=== PATIENT | male | born 1950 | race Caucasian/White ===

== ENCOUNTER 2017-09-17 18:18 | Emergency (ER) | payer MEDICARE, BC, SELFPAY ==
[2017-09-17 18:29] VITALS: BP 142/83; PULSE 71; RESP 20; TEMP 36.8; O2SAT 99; BMI 32.2
--- NOTE | 2017-09-17 18:34 | ED_ITS ---
HPI - Back Pain/Injury General Chief Complaint: Back Pain/Injury Stated Complaint: elevated BP, Upper back pain and left arm pain Time Seen by Provider: 09/17/17 18:33 Source: patient Mode of arrival: ambulatory Limitations: no limitations History of Present Illness HPI Narrative: The patient came in due to left scapular area back pain that radiated to his left shoulder and arm. The discomfort started 2 days ago. The pain did come after some exertion at home. He had no associated chest pain or dyspnea. He does have a history of CAD, but has been stable for many years. He has had no recent cardiac evaluation. He has diabetes, hyperlipidemia and hypertension. His blood pressure has been going up recently, he was 180s systolic at home prior to coming in today. He took a nitroglycerin sublingual, this decreased blood pressure and may have helped the back pain. He still has a degree of back pain. Additionally, he vomited today. The vomitus had no obvious blood. He had a single dark tarry bowel movement. There was no bright red blood per rectum. He took ibuprofen 2-3 days ago for the back pain. He has not been taking ibuprofen regularly. He has no history of PUD or GI bleeding. He does have a history of prostate cancer for which she underwent prostatectomy and radiation. A trace amount of PSA showed up and blood testing earlier this year. No source has been identified. He has no recent history of endoscopy or colonoscopy. Related Data Allergies Allergy/AdvReac Type Severity Reaction Status Date / Time INGREDIENT: NO KNOWN - NO Allergy Unknown Uncoded 05/29/17 13:07 KNOWN DRUG ALLERGY Review of Systems Review of Systems All systems reviewed & are unremarkable except as noted in HPI and below Constitutional Denies chills, Denies fever(s), Denies lethargy and Denies weakness Eyes Denies change in vision ENT Ears, Nose, Mouth, and Throat: Denies dysphagia and Denies neck pain Cardiovascular Denies chest pain at rest, Denies diaphoresis, Denies leg edema, Denies palpitations and Denies dyspnea Respiratory Denies cough, Denies hemoptysis and Denies dyspnea Gastrointestinal Gastrointestinal: Reports melena, Denies dysphagia, Denies heartburn, Denies nausea, Reports vomiting and Denies hematemesis Genitourinary Denies hematuria, Denies flank pain, Denies urinary incontinence and Denies urinary urgency Musculoskeletal Reports as per HPI, Denies muscle weakness and Denies neck pain Integumentary/Breasts Denies erythema, Denies rash and Denies wounds Neurologic Denies weakness Endocrine Denies palpitations PFSH Medical History Coronary artery disease (Acute) Diabetes (Acute) Hyperlipidemia (Acute) Hypertension (Acute) Prostate cancer (Acute) Surgical History H/O prostatectomy (Acute) Social History Smoking Status: Never smoker Exam Initial Vital Signs Initial Vital Signs: Vital Signs Temperature 98.2 F 09/17/17 18:29 Pulse Rate 71 09/17/17 18:29 Respiratory Rate 20 09/17/17 18:29 Blood Pressure 142/83 H 09/17/17 18:29 Pulse Oximetry 99 09/17/17 18:29 Const General: cooperative, healthy appearing and well developed Nutritional Appearance: well nourished Orientation: alert, awake and oriented x3 HENMT Head: normocephalic and atraumatic Mouth: oral mucosae normal and moist mucous membranes Eyes Conjunctivae: conjunctivae normal Neck Neck: No lymphadenopathy and No JVD Carotids: normal carotid upstroke Chest Chest: normal inspection of the chest and other (No chest wall tenderness.) Resp Effort & Inspection: normal respiratory effort and able to speak in complete sentences Auscultation: clear to auscultation bilaterally, no rales, no rhonchi and no wheezes Cardio Rate: regular rate Rhythm: regular rhythm Heart Sounds: S1 normal, S2 normal, no click, no gallops, no murmurs and no rubs Pulses: normal peripheral pulses GI Inspection: non-distended Palpation: soft, no hepatosplenomegaly, No guarding, No pulsatile mass and No tender Auscultation: normal bowel sounds Rectal Exam: visual inspection normal, normal sphincter tone, heme positive stool, No hemorrhoids and No mass Back/Spine/Pelvis Back: No CVA tenderness Cervical Spine: cervical ROM normal and No pain with cervical ROM Thoracic/Lumbar Spine: thoracic and lumbar spine normal to inspection and other (Palpable tenderness to the left side of the thoracic spine extending to the neck and to the shoulder, consistent with a trapezius muscle strain) Skin General: no rashes or lesions noted Neuro General: alert, oriented x3, gait normal and no focal motor deficits Speech: speech normal Extrem General: normal to inspection, full ROM, no clubbing, cyanosis or edema, no pedal edema and no calf tenderness Course Orders Ordered: ED Orders 09/17/17 18:30 Complete Blood Count AUTO DIFF Stat Comprehensive Metabolic Panel Stat Lipase Stat Partial Thromboplastin Time Stat Prothrombin Time INR Stat Troponin & CK Cardiac Panel Stat Type and Screen Stat 09/17/17 18:46 EKG-12 Lead Stat Sodium Chloride (Normal Saline 0.9%) 1,000 mls @ 150 mls/hr IV CONT KELLI Last Admin: 09/17/17 18:55 Dose: 150 mls/hr Discontinued Medications Pantoprazole Sodium (Protonix) 40 mg IV NOW ONE Stop: 09/17/17 18:47 Last Admin: 09/17/17 18:55 Dose: 40 mg Vital Signs - 8 hr 09/17/17 18:29 09/17/17 19:07 Temperature 98.2 F Pulse Rate 71 65 Respiratory Rate 20 20 Blood Pressure 142/83 H Blood Pressure [Left Arm] 111/60 Pulse Oximetry 99 99 MDM - Back Pain/Injury Lab Data Result diagrams: 09/17/17 18:30 09/17/17 18:30 Lab Results 09/17/17 09/17/17 09/17/17 Range/Units 18:30 18:30 18:30 WBC 8.0 (4.5-11.0) X10^3/uL RBC 5.20 (4.5-5.9) X10^6/uL Hgb 15.8 (13.5-17.5) g/dL Hct 46.9 (41-53) % MCV 90.2 (80-100) fL MCH 30.5 (26-34) PG MCHC 33.8 (30-36) % RDW 13.4 (11.6-14.8) % Plt Count 193 (150-400) X10^3/uL Neut % (Auto) 63.2 (50-75) % Lymph % (Auto) 21.2 L (25-40) % [place] % (Auto) 8.5 (3-14) % Eos % (Auto) 6.1 H (2-4) % Baso % (Auto) 1.0 (0-2) % Neut # (Auto) 5100 (2194-2382) /uL PT 10.8 (10.1-12.7) SECONDS INR 1.0 (0.9-1.3) APTT 30 (26.4-36.2) SECONDS Sodium 140 (137-145) mmol/L Potassium 4.1 (3.4-5.1) mmol/L Chloride 100 (98-107) mmol/L Carbon Dioxide 28 (22-32) mmol/L BUN 12 (9-20) mg/dL Creatinine 0.70 (0.66-1.25) mg/dL Estimated GFR > 60.0 (>60) mL/min BUN/Creatinine Ratio 17.1 (6-22) Glucose 136 H (80-110) mg/dL Calcium 9.6 (8.4-10.2) mg/dL Total Bilirubin 0.7 (0.2-1.3) mg/dL AST 37 (17-59) IU/L ALT 33 (21-72) IU/L Alkaline Phosphatase 90 (38-126) U/L Total Creatine Kinase 129 (55-170) U/L CK-MB (CK-2) 1.71 (<2.37) ng/mL CK-MB (CK-2) Rel Index 1.3 L (1.5-5.0) % Troponin I < 0.012 (0.01-0.034) ng/mL Total Protein 7.8 (6.3-8.2) g/dL Albumin 4.5 (3.5-5.0) g/dL Globulin 3.3 (1.7-4.1) g/dL Albumin/Globulin Ratio 1.4 (1.0-2.8) Lipase 160 (23-300) U/L ED Cosign/Signout Cosign ED Attending Cosignature Attestation: I was available to ER for verbal consultation or direct patient evaluation. I agree with the evaluation and treatment plan.
[2017-09-17] MEDS: PANTOPRAZOLE 40 MG VIAL IV (18:55)
[2017-09-17] MEDS: SODIUM CHLORIDE 0.9% 1,000 ML 150 ML IV (18:55)
[2017-09-17 18:56] LABS: Prothrombin Time 10.8 SECONDS (10.1-12.7)
[2017-09-17 18:59] LABS: Add Manual Diff / Slide Review NO; Eosinophils Percent Auto 6.1 % (2-4); Hematocrit 46.9 % (41-53); Hemoglobin 15.8 g/dL (13.5-17.5); Lymphocytes Percent Auto 21.2 % (25-40); Mean Corpuscular HGB Conc 33.8 % (30-36); Mean Corpuscular Hemoglobin 30.5 PG (26-34); Mean Corpuscular Volume 90.2 fL (80-100); Monocytes Percent Auto 8.5 % (3-14); Neutrophils Absolute Auto 5100 /uL (3000-5900); Neutrophils Percent Auto 63.2 % (50-75); PTT Partial Thromboplastin Tim 30 SECONDS (26.4-36.2); Platelet Count 193 X10^3/uL (150-400); Red Cell Distribution Width 13.4 % (11.6-14.8)
[2017-09-17 19:04] LABS: Alanine Aminotransferase 33 IU/L (21-72); Albumin 4.5 g/dL (3.5-5.0); Albumin Globulin Ratio 1.4 (1.0-2.8); Alkaline Phosphatase 90 U/L (38-126); Aspartate Aminotransferase 37 IU/L (17-59); BUN Creatinine Ratio 17.1 (6-22); Bilirubin Total 0.7 mg/dL (0.2-1.3); Blood Urea Nitrogen 12 mg/dL (9-20); Calcium 9.6 mg/dL (8.4-10.2); Carbon Dioxide 28 mmol/L (22-32); Chloride 100 mmol/L (98-107); Creatine Kinase 129 U/L (55-170); Estimated Glomerular Filt Rate > 60.0 mL/min (>60); Globulin 3.3 g/dL (1.7-4.1); Glucose 136 mg/dL (80-110); HEMOLYSIS 26 (0-50); Lipase 160 U/L (23-300); Potassium 4.1 mmol/L (3.4-5.1); Sodium 140 mmol/L (137-145); Total Protein 7.8 g/dL (6.3-8.2)
[2017-09-17 19:07] VITALS: BP 111/60; PULSE 65; RESP 20; O2SAT 99
[2017-09-17 19:20] LABS: CKMB % Relative Index 1.3 % (1.5-5.0); Creatine Kinase MB 1.71 ng/mL (<2.37)
[2017-09-17 19:22] LABS: Troponin I < 0.012 ng/mL (0.01-0.034)
[2017-09-17 20:57] VITALS: BP 101/68; PULSE 63; RESP 17; O2SAT 100
[2017-09-17 21:00] VITALS: BP 101/68; BP 109/65; BP 112/65; PULSE 63; PULSE 67; PULSE 77
[2017-09-17 21:18] VITALS: BP 123/75; PULSE 79; RESP 20; O2SAT 99
== END 2017-09-17 21:18 | disposition home or self-care (01) ==
PROVIDERS: Emergency Provider Emergency Medicine; Family Provider Family Medicine; PCP Family Medicine
DX: K92.2 Gastrointestinal hemorrhage, unspecified (principal); S46.219A Strain of muscle, fascia and tendon of other parts of biceps, unspecified arm, initial encounter; T73.3XXA Exhaustion due to excessive exertion, initial encounter
CPT/HCPCS: 36591; 80053; 82550; 82553; 83690; 84484; 85025; 85610; 85730; 86850; 86900; 86901; 93005; 93010; 96361; 96374; 99283; 99284; C9113

== ENCOUNTER 2017-10-28 14:52 | Day surgery (SDC) | payer MEDICARE, BC, SELFPAY ==
[2017-10-28 15:37] VITALS: BP 115/75; PULSE 70; RESP 16; TEMP 36.6; O2SAT 96; BMI 31.8
[2017-10-28] MEDS: SODIUM CHLORIDE 0.9% 1,000 ML 200 ML IV (15:53)
--- NOTE | 2017-10-28 16:31 | PM.HP.1 ---
History of Present Illness Date Patient Seen: 10/28/17 Time Patient Seen: 16:31 Chief complaint: [id number] Narrative: Patient here for colonoscopy. His blood in his stool. He was in the emergency room recently and was not felt to have a cardiac issue. 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 Patient History Medical History Coronary artery disease (Chronic) Diabetes (Chronic) Hyperlipidemia (Chronic) Hypertension (Chronic) Prostate cancer (Chronic) Hx of radiation therapy (Resolved) Surgical History H/O prostatectomy (Chronic) Family & Social History Family History: Reviewed 10/28/17 by Wing Curran MD Social History: household members spouse Tobacco & Substance use: Smoking Status Never smoker alcohol intake never Substance Use Type does not use Meds Home Medications Medication Instructions Recorded Confirmed Type aspirin 81 mg chewable tablet 81 mg PO DAILY 09/24/17 10/28/17 History atenolol 25 mg PO DAILY 09/24/17 10/28/17 History atorvastatin 10 mg tablet 80 mg PO DAILY 09/24/17 09/24/17 History flaxseed oil 1,000 mg capsule 1,000 mg PO DAILY cap 09/24/17 09/24/17 History glucosamine 750 vv-jzknxfsif-wzi tab PO tab 09/24/17 09/24/17 History no.7 644 mg-vit S-xkdflq-gnsyp tablet multivitamin tablet 1 tab PO DAILY 09/24/17 09/24/17 History omega-3 fatty acids 1,000 mg 1,000 mg PO DAILY 09/24/17 09/24/17 History capsule metformin 750 mg PO QPM 10/28/17 10/28/17 History nitroglycerin PRN 10/28/17 History Allergies Allergy/AdvReac Type Severity Reaction Status Date / Time No Known Drug Allergies Allergy Verified 10/28/17 08:05 Review of Systems Review of Systems Sugars 120 All systems reviewed & are unremarkable except as noted in HPI and below Exam Vital Signs (past 8 hours): - 10/28/17 15:37 Temperature 97.9 F Pulse Rate 70 Respiratory Rate 16 Blood Pressure 115/75 Pulse Oximetry 96 Oxygen Delivery Method Room Air Narrative Exam Narrative: Operative no apparent distress. Lungs clear. Heart regular rate and rhythm. Abdomen is soft nontender without mass. Alert and oriented x3. Assessment & Plan Plan: Assessment/Plan Narrative: Here for screening colonoscopy. I have discussed the procedure and the rationale with the patient including risks of bleeding, perforation which would necessitate a major operation, failure to find remove all lesions and the potential to tattoo. They appeared to understand and wished to proceed.
--- NOTE | 2017-10-28 16:33 | PM.PREOP ---
Pre-operative Note Interval Note Pre-op Check: Yes History & Physical exam performed today by Physician Changes: No ASA Class (for procedural sedation): III
[2017-10-28] MEDS: LIDOCAINE 4% SOLN 50 ML 20 ML TOP (16:41)
[2017-10-28] MEDS: TETRACAINE/BENZOCAINE/BUTAMBEN (CETACAINE) BOTTLE 1 SPRAY TOP (16:41)
[2017-10-28] MEDS: METOPROLOL TARTRATE 5 MG/5 ML INJ IV (16:49)
[2017-10-28] MEDS: fentaNYL 250 MCG/5 ML INJ IV (17:09)
[2017-10-28] MEDS: MIDAZOLAM 5 MG/5 ML VIAL IV (17:09)
--- NOTE | 2017-10-28 17:11 | PM.OP.ENDO ---
Operative Date/Time/Diagnoses Date of procedure: 10/28/17 Time of procedure: 17:11 Pre-op diagnosis: History of 1 episode of melena. Due for screening exam for colon cancer Post-op diagnosis: same (Two isolated esophageal varices. One in the mid esophagus and 1 right above the GE junction. No ulcerations or evidence of recent bleed. Sigmoid diverticulosis. Internal hemorrhoids.) Procedure & Clinicians Study performed: EGD. Colonoscopy. Same procedure as scheduled: Yes Indications: History of melena. Due for screening colonoscopy. Surgeon: Wing Curran Procedure Notes SCOAP/Timeout: Performed Procedure in detail: The patient had topical anesthetic applied to oropharynx. She was placed in left lateral decubitus position and underwent IV sedation directed by the surgeon consisting of fentanyl and Versed. A bite block was inserted and the scope was advanced through it into the esophagus. The esophagus was remarkable for 2 isolated varices. One was located just above the GE junction and consists of a large mounded vein without ulceration or evidence of recent bleed. The other was higher up in the midesophagus and a bit smaller but again isolated to a short segment of esophagus. GE junction was noted at 40 cm from the incisors. The stomach insufflated well. There were no lesions seen in the body, antrum or at the incisura. The pyloric channel was patent. The duodenum was unremarkable to the 4th part. The papilla was normal in appearance. The scope was brought back into the stomach and retroflexed. The proximal stomach[was without lesion]. The scope was straightened and brought out through the esophagus again. No other lesions were seen. The scope was removed and the patient tolerated the procedure well. The patient was repositioned given additional sedation directed by the surgeon consisting of fentanyl and Versed. Digital exam was[unremarkable]. The scope was inserted and advanced through the rectum into the sigmoid, descending, transverse, and ascending colon.[]. The cecum was reached identified by the ileocecal valve. I spent the next 15 min trying to get into the cecum proper. The best I could do was see the back wall and the ileocecal valve. The patient was repositioned pressure was applied a stiffener was inserted patient was given additional sedation and also no avail The scope was gradually brought out. No Polyps were found. The scope ultimately was attempted to be retroflexed in the rectum. I was unable to do so despite multiple attempts. The scope was removed and the patient tolerated the procedure well Scope withdrawal time: Over 6 min Sedation minutes: 27 Findings: diverticulosis, internal hemorrhoids and other findings (Esophageal varices) Recommendations: Colonscopy in 10 years Follow up: as needed Disposition: PACU
[2017-10-28 17:20] VITALS: BP 107/70; PULSE 73; RESP 12; TEMP 36.8; O2SAT 94
[2017-10-28 17:25] VITALS: BP 117/74; PULSE 73; RESP 13; O2SAT 95
[2017-10-28 17:30] VITALS: BP 110/74; PULSE 80; RESP 14; TEMP 36.8; O2SAT 95
[2017-10-28 17:45] VITALS: BP 109/73; PULSE 81; RESP 14; TEMP 36.8; O2SAT 97
== END 2017-10-28 17:52 | disposition home or self-care (01) ==
PROVIDERS: Family Provider Family Medicine; PCP Family Medicine; Visit Provider Specialist
PROC: 0DJ08ZZ Inspection of Upper Intestinal Tract, Via Natural or Artificial Opening Endoscopic (ICD-10-PCS; CPT 43235; principal; 2017-10-28 16:00)
PROC: 0DJD8ZZ Inspection of Lower Intestinal Tract, Via Natural or Artificial Opening Endoscopic (ICD-10-PCS; CPT 45378; 2017-10-28 16:00)
DX: Z12.11 Encounter for screening for malignant neoplasm of colon (principal); Z87.898 Personal history of other specified conditions; I25.10 Atherosclerotic heart disease of native coronary artery without angina pectoris; E11.9 Type 2 diabetes mellitus without complications; E78.5 Hyperlipidemia, unspecified; I10 Essential (primary) hypertension; Z79.84 Long term (current) use of oral hypoglycemic drugs; K64.8 Other hemorrhoids; I85.00 Esophageal varices without bleeding; K57.30 Diverticulosis of large intestine without perforation or abscess without bleeding
CPT/HCPCS: 43235; G0121; 99152; 99153; J2250; J3010

== ENCOUNTER → 2018-04-15 12:00 | Outpatient (CLI) | payer MEDICARE, BC, SELFPAY | PROVIDERS: Family Provider Family Medicine; PCP Family Medicine; Visit Provider Family Medicine | DX: E11.9 Type 2 diabetes mellitus without complications (principal) | CPT/HCPCS: 97802 ==

== ENCOUNTER 2018-09-22 11:30 | Outpatient (RCR) | payer MEDICARE, BC, SELFPAY | END 2018-10-02 10:40 | disposition home or self-care (01) | LOC: CAR 11:30 | PROVIDERS: Family Provider Family Medicine; PCP Family Medicine; Visit Provider Hospitalist | DX: Z95.5 Presence of coronary angioplasty implant and graft (principal) | CPT/HCPCS: 93798 ==

== ENCOUNTER → 2019-06-15 10:51 | Outpatient (CLI) | payer MEDICARE, BC, SELFPAY ==
--- NOTE | 2019-06-15 | DI.RAD.S_ITS ---
PROCEDURE: XR SHOULDER LT MIN 2V INDICATIONS: LT SHOULDER POST FALL. TECHNIQUE: 3 views of the shoulder were acquired. COMPARISON: None. FINDINGS: Bones: No acute fractures or dislocations. Moderate hypertrophic degenerative changes of the left acromioclavicular joint with undersurface spurring of the distal clavicle. Mild degenerative changes of the glenohumeral joint. Coracoclavicular and acromioclavicular intervals are maintained. No suspicious bony lesions. Visualized ribs appear intact. Soft tissues: No suspicious soft tissue calcifications. Visualized portions of the lungs are clear. IMPRESSION: Left shoulder without acute radiographic abnormalities. Degenerative changes of the left acromioclavicular and glenohumeral joints. Dictated by: Kuldip Buck M.D. on 06/15/2019 at 13:12 Approved by: Kuldip Buck M.D. on 06/15/2019 at 13:14
== END ==
PROVIDERS: Family Provider Family Medicine; PCP Family Medicine; Referring Provider Family Medicine; Visit Provider Family Medicine
DX: S49.92XA Unspecified injury of left shoulder and upper arm, initial encounter (principal); W19.XXXA Unspecified fall, initial encounter
CPT/HCPCS: 73030

== ENCOUNTER → 2019-11-21 09:31 | Outpatient (CLI) | payer MEDICARE, BC, SELFPAY ==
[2019-11-22 22:40] LABS: COVID19 Sendout Not Detected (Not Detect)
== END ==
PROVIDERS: Family Provider Family Medicine; PCP Family Medicine; Visit Provider Physician Assistant
DX: Z11.59 Encounter for screening for other viral diseases (principal)
CPT/HCPCS: 87635

== ENCOUNTER 2020-02-08 10:30 | Outpatient (RCR) | payer MEDICARE, BC, SELFPAY | END 2020-02-08 12:30 | LOC: CAR 10:30 | PROVIDERS: Family Provider Family Medicine; PCP Family Medicine; Referring Provider Hospitalist; Visit Provider Hospitalist | DX: Z95.5 Presence of coronary angioplasty implant and graft (principal) | CPT/HCPCS: 93798 ==

== ENCOUNTER → 2022-11-02 12:54 | Outpatient (ROUT) | payer MEDICARE, BC, SELFPAY ==
[2022-11-02 13:34] LABS: Influenza A - CEPHEID Flu A NEGATIVE (NEGATIVE); Influenza B - CEPHEID Flu B NEGATIVE (NEGATIVE); Respiratory Syncytial Virus Negative (Negative)
[2022-11-02 13:35] LABS: COVID-19 CEPHEID 4-PLEX PCR Negative (Negative)
== END ==
PROVIDERS: Family Provider Family Medicine; PCP Family Medicine; Visit Provider Family Medicine
DX: Z11.59 Encounter for screening for other viral diseases (principal)
CPT/HCPCS: 0241U

== ENCOUNTER → 2024-08-10 07:44 | Outpatient (CLI) | payer MEDICARE, BC, SELFPAY ==
--- NOTE | 2024-08-10 07:47 | DI.NM.S_ITS ---
PROCEDURE: NM ASHA PERF SPECT REST & STR Rest and exercise myocardial perfusion SPECT with gated imaging and ejection fraction RADIOPHARMACEUTICAL: 12.5 mCi Tc-99m sestamibi IV at rest and 26.1 mCi Tc-99m sestamibi IV at peak exercise. A [id number] was performed. INDICATIONS: ASCVD TECHNIQUE: Radiopharmaceutical was injected at peak stress test, and also at rest. SPECT images were obtained. SPECT myocardial perfusion images were displayed in short axis, horizontal long axis, and vertical long axis views. Gated images were reviewed using [employer] Interactive software. COMPARISON: None. CARDIAC STRESS: A standard Ryan treadmill exercise tolerance test was performed by the patient under the supervision of an attending staff. The patient exercised for 8 minutes and 11 seconds; 10.1 METS; functional aerobic impairment (ONIEL) is -35%. Hemodynamic data: There is normal blood pressure and heart rate response to exercise stress. Patient achieved 101% of maximum predicted heart rate at peak exercise. Symptoms: Patient denied chest pain during exercise. EKG: No diagnostic EKG changes of ischemia; frequent PVCs noted. FINDINGS: Raw data: There is good myocardial labeling by radiotracer. No significant motion artifacts. Ehmu-mn-rexix ratio is 0.38 (normal is less than 0.38 for sestamibi tracer, and less than 0.50 for thallium tracer). Left ventricle function: Gated images demonstrate normal left ventricle wall thickening. No segmental wall motion abnormality. No transient ischemic dilation; TID is 1.05 (normal less than 1.3). The left ventricle resting end-diastolic volume is 82 mL. Left ventricle stress ejection fraction is 66%; normal values are above 45%. Myocardial perfusion: There is medium sized, mild to moderate intensity fixed basal to mid inferior and inferolateral wall defect that resolves in prone imaging. No reversible perfusion defects. IMPRESSION: Low risk study. No evidence of exercise-induced ischemia on ECG or SPECT imaging. Normal LV size and function. Normal hemodynamic response to exercise. Frequent exercise-induced PVCs. Very good exercise capacity. Dictated by: Marifer Dominguez D.O. on 08/10/2024 at 16:53 Approved by: Marifer Dominguez D.O. on 08/10/2024 at 16:57
== END ==
PROVIDERS: PCP Family Medicine; Referring Provider Family Medicine; Visit Provider Family Medicine
DX: I25.10 Atherosclerotic heart disease of native coronary artery without angina pectoris (principal); R53.83 Other fatigue
CPT/HCPCS: 78452; 93017; A9502